=== PATIENT | female | born 1985 | race Hispanic/Latino ===

== ENCOUNTER 2017-07-05 20:28 | Emergency (ER) | payer BC, MEDICAID ==
--- NOTE | 2017-07-05 21:37 | ED PDOC ---
HPI: General Adult Time Seen by Provider: 07/05/17 21:32 Chief Complaint (Nursing): Flu-like Symptoms Chief Complaint (Provider): Fever, Body Aches, Nasal and Chest Congestion History Per: Patient History/Exam Limitations: no limitations Onset/Duration Of Symptoms: Days (x1) Have you had recent travel within the past 21 days to any of the following countries: [place], [place], [place] or [place]?: No Current Symptoms Are (Timing): Still Present Additional Complaint(s): 31 year old female with a past medical history of hypertension presents to the ED complaining of fever (101 at home), nasal and chest congestion and body aches. The patient states that her daughter is currently sick at home with the flu and strep throat. The patient further states that she is currently taking augmentin for a sinus infection but she has not completed the course. She reports that she has taken nazicort and motrin with no relief. PMD: Collin Casey Past Medical History Reviewed: Historical Data, Nursing Documentation, Vital Signs Vital Signs: Last Vital Signs Temp 101 F H 07/05/17 21:55 Pulse 135 H 07/05/17 20:36 Resp 20 07/05/17 20:36 BP 142/95 H 07/05/17 20:36 Pulse Ox 99 07/05/17 23:07 - Medical History PMH: Asthma, Bronchitis, HTN - Surgical History Surgical History: - Family History Family History: States: Unknown Family Hx - Living Arrangements Living Arrangements: With Family - Home Medications Home Medications: Ambulatory Orders Medication Instructions Recorded Dicyclomine [Bentyl] 10 mg PO TID PRN #12 cap 05/23/16 Nitrofurantoin Macrocrystals 100 mg PO BID #14 cap 05/23/16 [Macrobid] Prednisone 50 mg PO DAILY #4 tab 05/23/16 Ranitidine HCl [Zantac] 150 mg PO BID #14 tablet 05/23/16 Acetaminophen [Acetaminophen Extra 2 tab PO Q6 PRN #24 tablet 07/05/17 Strength] Ibuprofen [Motrin Tab] 800 mg PO Q8 PRN #21 tab 07/05/17 Oseltamivir [Tamiflu] 75 mg PO BID #9 cap 07/05/17 - Allergies Allergies/Adverse Reactions: Allergies Allergy/AdvReac Type Severity Reaction Status Date / Time No Known Allergies Allergy Verified 05/23/16 17:37 Review of Systems Constitutional: Positive for: Fever (tmax 101), Other (body aches) ENT: Positive for: Nose Congestion Cardiovascular: Positive for: Other (chest congestion) Physical Exam - Reviewed Nursing Documentation Reviewed: Yes - Physical Exam Appears: Positive for: Non-toxic, No Acute Distress Head Exam: Positive for: NORMAL INSPECTION Skin: Positive for: Normal Color, Warm, Dry. Negative for: Rash Eye Exam: Positive for: Normal appearance, EOMI, PERRL ENT: Positive for: Nasal Congestion, Other (throat within normal limits). Negative for: Tonsillar Exudate, Tonsillar Swelling Cardiovascular/Chest: Positive for: Regular Rate, Rhythm, Chest Non Tender. Negative for: Tachycardia Respiratory: Positive for: Normal Breath Sounds (lungs clear to auscultation). Negative for: Wheezing, Respiratory Distress Neurologic/Psych: Positive for: Alert, Oriented - Laboratory Results Result Diagrams: 07/05/17 22:42 07/05/17 22:42 - ECG ECG Rhythm: Positive for: Sinus Tachycardia (119 bpm no ectopy; no acute changes ) O2 Sat by Pulse Oximetry: 99 (RA) Pulse Ox Interpretation: Normal Medical Decision Making Medical Decision Makin Initial Impression 31 y/o female presenting with fever and body aches Initial Plan * Tylenol 975mg PO * Influenza A B * Reevaluation Documented by Venice Baeza acting as a scribe for Raymundo Augustine PA-C. All medical record entries made by the Scribe were at my direction and personally dictated by me. I have reviewed the chart and agree that the record accurately reflects my personal performance of the history, physical exam, medical decision making, and the department course for this patient. I have also personally directed, reviewed, and agree with the discharge instructions and disposition. Disposition - Clinical Impression Clinical Impression: Influenza - Patient ED Disposition Is Patient to be Admitted: No - Disposition Disposition: Routine/Home Disposition Time: 23:33 Condition: FAIR Prescriptions: Acetaminophen [Acetaminophen Extra Strength] 2 tab PO Q6 PRN #24 tablet PRN Reason: Fever >100.4 F Ibuprofen [Motrin Tab] 800 mg PO Q8 PRN #21 tab PRN Reason: Fever >100.4 F Oseltamivir [Tamiflu] 75 mg PO BID #9 cap Instructions: Influenza (ED) Forms: [facility] ([place]), [facility] ED School/Work Excuse
[2017-07-05] MEDS ORDERED: Sodium Chloride 0.9% 1,000 ML IV STA (21:55)
[2017-07-05 22:54] LABS: BASO # 0.1 K/uL (0.0-0.2); BASO % 0.7 % (0.0-2.0); EOS # 0.1 K/uL (0.0-0.7); EOS % 1.3 % (0.0-4.0); LYMPH # 1.8 K/uL (1.0-4.3); LYMPH % 21.6 % (20.0-40.0); MEAN CELL VOLUME 85.2 fl (81.0-99.0); MEAN CORPUSCULAR HEMOGLOBIN 29.3 pg (27.0-31.0); MEAN CORPUSCULAR HGB CONC 34.4 g/dL (33.0-37.0); MEAN PLATELET VOLUME 8.4 fl (7.2-11.7); MONO # 0.7 K/uL (0.0-0.8); MONO % 8.2 % (0.0-10.0); NEUT # 5.5 K/uL (1.8-7.0); NEUT % 68.2 % (50.0-75.0); NRBC % 0.1 % (0.0-0.0); RBC 4.44 Mil/uL (3.80-5.20); RED CELL DISTRIBUTION WIDTH 13.4 % (11.5-14.5); WHITE BLOOD COUNT 8.1 K/uL (4.8-10.8)
[2017-07-05 22:58] LABS: BLOOD UREA NITROGEN 9 mg/dl (7-17); CALCIUM 9.2 mg/dL (8.4-10.2); GFR AFRICAN-AMERICAN > 60; GFR NON-AFRICAN AMERICAN > 60
[2017-07-05 23:58] VITALS: TEMP 98.8
[2017-07-05 23:59] VITALS: BP 139/75; PULSE 98; RESP 17; O2SAT 97
== END 2017-07-06 | disposition home or self-care (01) ==
LOC: H.ER 20:28
DX: J09.X2 Influenza due to identified novel influenza A virus with other respiratory manifestations (principal); I10 Essential (primary) hypertension; J45.909 Unspecified asthma, uncomplicated
CPT/HCPCS: 80048; 84443; 85025; 87804; 96374; 99283; J2405; J7040

== ENCOUNTER 2018-07-11 00:26 | Emergency (ER) | payer BC ==
[2018-07-11 00:42] VITALS: TEMP 98.4
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
[2018-07-11 07:12] VITALS: BP 147/89; PULSE 78; RESP 17; O2SAT 99
--- NOTE | 2018-07-11 09:21 | RAD ---
Date of service: 07/11/2018 HISTORY: s/p inversion injury COMPARISON: None available. FINDINGS: BONES: Normal. No fracture. JOINTS: Normal. No osteoarthritis. SOFT TISSUE: Bimalleolar soft tissue swelling more pronounced laterally. OTHER FINDINGS: None . IMPRESSION: No acute fracture.
== END 2018-07-11 04:15 | disposition home or self-care (01) ==
LOC: H.ER 00:26
DX: S93.402A Sprain of unspecified ligament of left ankle, initial encounter (principal); X50.9XXA Other and unspecified overexertion or strenuous movements or postures, initial encounter; Y92.89 Other specified places as the place of occurrence of the external cause; I10 Essential (primary) hypertension